=== PATIENT | female | born 1955 | race Hispanic/Latino ===

== ENCOUNTER → 2023-05-01 | Outpatient (CLI) | payer OTHER, MEDICARE ==
[~2023-05-01] MED LIST: IOHEXOL 350 MG/ML 100ML INFUS..BTL IV ONE; IOHEXOL-350 50ML VIAL IV ONE
== END | disposition home or self-care (01) ==
LOC: RAH 10:13
PROVIDERS: ATTEND Internal Medicine Cardiovascular Disease
DX: N28.1 Cyst of kidney, acquired (principal); I70.209 Unspecified atherosclerosis of native arteries of extremities, unspecified extremity; M47.815 Spondylosis without myelopathy or radiculopathy, thoracolumbar region; K57.90 Diverticulosis of intestine, part unspecified, without perforation or abscess without bleeding; I70.90 Unspecified atherosclerosis
CPT/HCPCS: 75635; Q9967 ×2